=== PATIENT | female | born 1990 | race Caucasian/White ===

== ENCOUNTER 2018-01-18 17:33 | Emergency (ER) | payer MEDICAID ==
[~2018-01-18] VITALS: Ht 162.6 cm; Wt 56.0 kg
[2018-01-18 17:36] VITALS: BP 108/69
== END 2018-01-18 20:30 | disposition left against medical advice (07) ==
LOC: ER 17:42
DX: Z53.21 Procedure and treatment not carried out due to patient leaving prior to being seen by health care provider (principal)